=== PATIENT | female | born 1950 | race Caucasian/White ===

== ENCOUNTER 2024-10-25 18:48 | Emergency (ER) | payer MEDICARE ==
[2024-10-25 19:08] LABS: APPEARANCE,URINE TURBID (CLEAR); GLUCOSE,URINE NEGATIVE (NEGATIVE); OCCULT BLOOD,URINE SMALL (NEGATIVE)
[2024-10-25 19:18] LABS: SQUAMOUS EPITHELIAL CELLS,UR MANY /HPF; UROTHELIAL CELLS,URINE NOT SEEN /HPF
== END 2024-10-25 19:35 | disposition home or self-care (01) ==
LOC: JP.ED 18:48
DX: N30.01 Acute cystitis with hematuria (principal); Z79.899 Other long term (current) drug therapy
CPT/HCPCS: 81001; 87086; 99283